=== PATIENT | female | born 1960 | race Caucasian/White ===

== ENCOUNTER → 2022-05-09 | Outpatient (CLI) | payer BC ==
--- NOTE | 2022-05-09 09:38 | BD ---
EXAMINATION TYPE: Axial Bone Density DATE OF EXAM: 05/09/2022 COMPARISON: NONE CLINICAL HISTORY: 61 year old Female. ICD-10 CODE: M81.0 OSTEOPOROSIS Height: 69 Weight: 184.4 FRAX RISK QUESTIONS: Alcohol (3 or more units per day): no Family History (Parent hip fracture): no Glucocorticoids (More than 3mos): no (Ex: prednisone, prednisolone, methylprednisolone, dexamethasone, and hydrocortisone). History of Fracture in Adulthood: no Secondary Osteoporosis: 1. Type 1 Diabetes: no 2. Hyperthyroidism: no 3. Menopause before 45: no 4. Malnutrition: no 5. Chronic liver disease: no Rheumatoid Arthritis: no Current Tobacco Use: no RISK FACTORS HISTORY OF: Surgery to Spine/Hip(right/left)/Wrist (right/left): no Family History of Osteoporosis: yes Active: no Diet low in dairy products/other sources of calcium: yes Postmenopausal woman: yes Lost more than 2 inches in height since high school: no MEDICATIONS: Additional History: EXAM MEASUREMENTS: Bone mineral densitometry was performed using the DEUS System. Bone mineral density as measured about the Lumbar spine is: ----- L1-L4(G/cm2): 0.912 T Score Values are as follows: ----- L1: -2.4 ----- L2: -3.1 ----- L3: -2.2 ----- L4: -1.7 ----- L1-L4: -2.2 Bone mineral density : baseline Bone mineral density about the R hip (g/cm2): 0.713 Bone mineral density about the L hip (g/cm2): 0.747 T Score values are as follows: -----R Neck: -2.3 -----L Neck: -2.1 -----R Total: -2.7 -----L Total: -2.5 Bone mineral density : baseline FRAX%s: The graph provided illustrates a 11.3% chance for a major osteoporotic fx and a 1.9% chance f or the hips probability for fx in 10 years time. IMPRESSION: Osteoporosis (T Score less than -2.5). There is increased fracture risk and therapy is usually indicated based on age. Re-Screen 1-2 years. NOTE: T-SCORE=SD OF THE YOUNG ADULT MEAN.
== END | disposition home or self-care (01) ==
LOC: RADMAMWWP 07:08
PROVIDERS: ATTEND Family Medicine
DX: Z12.31 Encounter for screening mammogram for malignant neoplasm of breast (principal); M81.0 Age-related osteoporosis without current pathological fracture
CPT/HCPCS: 77063; 77067; 77080

== ENCOUNTER → 2022-06-05 | Outpatient (CLI) | payer BC ==
--- NOTE | 2022-06-05 09:52 | CT ---
EXAMINATION TYPE: CT abdomen w con DATE OF EXAM: 06/05/2022 COMPARISON: None HISTORY: Hernia, kidney lesion CT DLP: 587.3 mGycm CONTRAST: CT scan of the abdomenis performed with Oral Contrast and with IV Contrast, patient injected with 61m l mL of Isovue 300. FINDINGS: LUNG BASES-: No visible nodule. No infiltrate. LIVER/GB: The gallbladder surgically absent. No space occupying hepatic lesion. Biliary tree is of normal caliber. PANCREAS: No inflammation. No distinct mass. SPLEEN: No splenic enlargement. No lesion seen. ADRENALS: No nodule. No thickening. KIDNEYS/BLADDER: No hydronephrosis. No nephrolithiasis. Fat-containing lesion mid pole left kidney measuring 1.9 cm compatible with angiomyolipoma. No additional renal lesions seen. Urinary bladder gr ossly unremarkable. BOWEL: Postoperative changes about the stomach. Moderate fecal stasis. Nonvisualization of the append ix. Visualized bowel loops are of normal caliber. LYMPH NODES: No greater than 1cm abdominal or pelvic lymph nodes are appreciated. AORTA: No significant abnormality. OSSEOUS STRUCTURES: No significant abnormality is seen. OTHER: No visible hernia within the imaged field. IMPRESSION: 1. Angiomyolipoma of the left kidney.
== END | disposition home or self-care (01) ==
LOC: RADCTMAIN 08:00
PROVIDERS: ATTEND Family Medicine
DX: N28.9 Disorder of kidney and ureter, unspecified (principal); K43.9 Ventral hernia without obstruction or gangrene
CPT/HCPCS: 74160; Q9967 ×2

== ENCOUNTER → 2023-06-28 | Outpatient (CLI) | payer BC ==
--- NOTE | 2023-06-29 09:57 | CT ---
EXAMINATION TYPE: CT abdomen pelvis w con DATE OF EXAM: 06/28/2023 COMPARISON: 06/05/2020 HISTORY: Follow-up renal lesion CT DLP: 712.6 mGycm Automated exposure control for dose reduction was used. CONTRAST: CT scan of the abdomen pelvis is performed with IV Contrast, patient injected with 100 mL of Isovue 3 00. FINDINGS- LUNG BASES- No significant abnormality is appreciated. LIVER/GB- No gross abnormality is appreciated. PANCREAS- No gross abnormality is seen. SPLEEN- No gross abnormality is seen. ADRENALS- No gross abnormality is seen. KIDNEYS/BLADDER- No hydronephrosis. No nephrolithiasis. Fat-containing lesion mid pole left kidney me asuring 1.8 cm compatible with angiomyolipoma. No additional renal lesions seen. Urinary bladder kristopher sly unremarkable. BOWEL- small hiatal hernia with postoperative change involving the epigastrium\stomach. No evidence of obstruction. Extensive retained fecal debris. Correlate for constipation. LYMPH NODES- No greater than 1cm abdominal or pelvic lymph nodes are appreciated. OSSEOUS STRUCTURES- hypertrophic and degenerative changes spine with grade 1 anterolisthesis of L3-4 and chronic appearing endplate deformity of L3. Diffuse osteopenia. Bilateral hip arthropathy. Canno t exclude early osteonecrosis. OTHER- aorta of normal caliber. There is a fat-containing ventral wall hernia IMPRESSION- 1. Stable 1.8 cm left renal lesion. Differential diagnosis would include an angiomyolipoma. Would rec ommend MRI of the kidney for confirmation. 2. There are 2 fat-containing moderate-sized ventral abdominal wall hernia.
--- NOTE | 2023-07-01 16:42 | MM ---
Reason for Exam: Screening (asymptomatic). Last mammogram was performed 1 year(s) and 2 month(s) ago. Patient History: Menarche at age 11. Patient has no children. Postmenopausal. Hormonal Contraceptives for 4 months. Maternal grandmother had breast cancer at or over age 50. Mother had breast cancer at or over age 50. Risk Values: Sophia 5 year model risk: 3.3%. NCI Lifetime model risk: 14.3%. Prior Study Comparison: 02/21/2018 Bilateral MG 3D screening mammo w/cad, [place]. 05/09/2019 Bilateral MG 3D screening mammo w/cad, [place]. 05/09/2022 Bilateral MG 3D screening mammo w/cad, [facility]. Tissue Density: There are scattered fibroglandular densities. Findings: Analyzed By CAD. Unchanged benign bilateral calcifications. There is no suspicious group of microcalcifications or new suspicious mass in either breast. Overall Assessment: Benign, BI-RAD 2 Management: Screening Mammogram of both breasts in 1 year. See note below in regards to patient's increased five-year Sophia score. Patient should continue monthly self-breast exams. A clinical breast exam by your physician is recommended on an annual basis. This exam should not preclude additional follow-up of suspicious palpable abnormalities. Note on Sophia scores and lifetime risk: 1. A Sophia score greater than 3% is considered moderate risk. If this is the case, consider specialist referral to assess eligibility for a risk reducing agent. 2. If overall lifetime risk for the development of breast cancer is 20% or higher, the patient may qualify for future screening with alternating mammogram and breast MRI. Electronically signed and approved by: Isauro Davis M.D. Radiologist
== END | disposition home or self-care (01) ==
LOC: RADCTMAIN 14:22
PROVIDERS: ATTEND Family Medicine
DX: Z12.31 Encounter for screening mammogram for malignant neoplasm of breast (principal); D17.71 Benign lipomatous neoplasm of kidney; N28.9 Disorder of kidney and ureter, unspecified; K43.9 Ventral hernia without obstruction or gangrene; Z78.0 Asymptomatic menopausal state; Z80.3 Family history of malignant neoplasm of breast
CPT/HCPCS: 77067; 77063; 74177; Q9967

== ENCOUNTER → 2024-02-06 | Outpatient (CLI) | payer BC ==
--- NOTE | 2024-02-07 12:48 | MR ---
EXAMINATION TYPE: MR kidney wo/w con DATE OF EXAM: 02/06/2024 8:09 AM CLINICAL INDICATION:Female, 63 years old with history of N28.89 kidney lesion, Left renal lesion. COMPARISON: CT scan abdomen from 06/28/2023. TECHNIQUE: Multiplanar multi-sequence imaging was performed without contrast. Post contrast imaging was performed. Post IV contrast subtraction images were also submitted for review. IV Contrast: 10 cc Gadavist FINDINGS: LOWER CHEST: No gross irregularity. ABDOMEN Liver: No evidence for hepatic steatosis or cirrhosis. Signal dropout on chemical shift in phase imag ing. Gallbladder and Bile ducts: No evidence for ductal dilation, or biliary stricture or evidence of chol edocholithiasis. The gallbladder is within normal limits. Pancreas: No ductal dilation. No evidence for solid mass. Spleen: Normal for size. Signal dropout on chemical shift in phase imaging. Adrenal glands: Unremarkable. Kidneys: Left renal hypoenhancing neoplasm measuring 19 x 14 mm. No evidence for obstructive uropathy . No suspicious renal masses. Stomach and Bowel: No evidence for bowel wall thickening or evidence for obstruction. Retroperitoneum/Peritoneum: No evidence of pneumoperitoneum or free fluid. Vasculature: No aortic aneurysm. Musculoskeletal: The osseous structures appear intact. Lymph Nodes: No gross evidence for lymphadenopathy. Abdominal wall: Fat-containing umbilical hernia measuring 16 mm at the neck. IMPRESSION: 1. Hypoenhancing left renal neoplasm concerning for renal cell carcinoma such as papillary or chromo phobe such subtype. 2. Iron deposition in the liver and spleen.
== END | disposition home or self-care (01) ==
LOC: RADMRIMAIN 07:09
PROVIDERS: ATTEND Family Medicine
DX: N28.89 Other specified disorders of kidney and ureter (principal)
CPT/HCPCS: 74183; A9585

== ENCOUNTER → 2024-05-15 | Outpatient (CLI) | payer BC ==
[2024-05-15 15:14] VITALS: BP 113/79; PULSE 80; RESP 16; TEMP 98.1
--- NOTE | 2024-05-15 15:52 | P.SLEEP ---
History of Present Illness DATE: 05/15/2024 CONSULTATION/NEW PATIENT EVALUATION HISTORY OF PRESENT ILLNESS/SLEEP-WAKE EVALUATION: 63-year-old lady had been e valuated in the sleep center for possible obstructive sleep apnea hypopnea syndrome. Patient has history of witnessed episodes of stop breathing during the sleep before she lost weight after bariatric surgery. SLEEP SCHEDULE: Usually sleep schedule from 9:3010:30 PM until 6:307 AM. FALLING ASLEEP: Usually no significant problems with falling asleep. DURING SLEEP: Patient snores and has several awakenings during the sleep after which she has difficulties to initiate sleep again. No history of hypnogogical hallucinations, sleep paralysis, or cataplexy. DURING THE DAY/WAKE STATE: In the morning patient wake up tired. [place] sleepiness scale is 4. Usually patient does not take naps. PAST MEDICAL HISTORY: Arthritis, skin cancer. PAST SURGICAL HISTORY: Status post left knee replacement, bariatric surgery. MEDICATIONS: Please see below. SOCIAL HISTORY: Please see below. FAMILY HISTORY: Prostate cancer, breast cancer. REVIEW OF SYSTEMS: Snoring, awakenings from sleep. No fevers. No double vision. No recent chest pain. No shortness of breath. No abdominal pain. No bleeding episodes. No blood in urine. No seizure episodes. PHYSICAL EXAMINATION: GENERAL: A pleasant patient without any distress. VITAL SIGNS: Please see below, weight 188 pounds, BMI 28.5. HEENT: PERRLA, EOMI. Evaluation of oropharynx showed tongue protrudes midline, low position of soft palate Mallampati 34, retrognathia 1 to 2 mm. NECK: Supple. No JVD. Thyroid is not palpable. 12.5 inches in circumference. LUNGS: Clear to percussion and to auscultation. Good air exchange. No wheezing or rhonchi. HEART: S1, S2 regular. No murmurs, gallops or rubs. ABDOMEN: Soft and nontender. Bowel sounds are present. No organomegaly appreciated. EXTREMITIES: No clubbing or cyanosis. SENIOR INFORMATION SECURITY ARCHITECT: Awake, alert, and oriented x3. Cranial nerves 2 to 7 intact. There is no fasciculation or atrophy noted. No focal deficits observed. ASSESSMENT: 1. Snoring, awakenings from sleep, extremely low position of soft palate Mallampati 34, retrognathia 1 to 2 mm. A witnessed episodes of stop breathing during the sleep before patient lost weight. Possible obstructive sleep apnea hypopnea syndrome. 2. Status post bariatric surgery. 3. Arthritis. 4. Status post left knee replacement. PLAN: 1. Home sleep apnea test for evaluation of patient's breathing during sleep. 2. Following plan after reading sleep study 3. Preferable position during sleep on the side. 4. No driving if patient feels any sleepiness. Patient is aware of civil and criminal liability for unsafe driving. 5. Sleep hygiene with regular sleep time for at least 7.5-8 hours. 6. Watching weight. Thank you very much for referring this patient for consultation. Sincerely, Vasile Mclain MD, PhD, FAASM. Diplomat of [place] [employer], Sleep Medicine Board by [place] [employer] [place] [employer] [facility] [place] cc: Nicole Cross MD Past Medical History Past Medical History: Cancer Additional Past Medical History / Comment(s): HX: squamous cell and basil Carcinom Face History of Any Multi-Drug Resistant Organisms: None Reported Past Surgical History: Bariatric Surgery, Orthopedic Surgery Additional Past Surgical History / Comment(s): Left Knee replacement Past Anesthesia/Blood Transfusion Reactions: No Reported Reaction Past Psychological History: Depression Smoking Status: Never smoker Past Alcohol Use History: Occasional Past Drug Use History: None Reported - Past Family History Father Family Medical History: Cancer Mother Family Medical History: Cancer, Osteoarthritis (OA) Brother(s) Family Medical History: Cancer Additional Family Medical History / Comment(s): sinus headaches Medications and Allergies Home Medications Medication Instructions Recorded Confirmed Type Denosumab [Prolia] See Rx Instructions .ROUTE .COMPLEX 05/15/24 05/15/24 History Mirtazapine See Rx Instructions .ROUTE .COMPLEX 05/15/24 05/15/24 History Physical Exam Vitals: Vital Signs Temp Pulse Resp BP Pulse Ox 05/15/24 15:14 98.1 F 80 16 113/79 97 Intake and Output 05/15/24 05/15/24 05/15/24 06:59 14:59 22:59 Other: Weight 85.275 kg Sleep Note - Sleep Data ESS Total: 4 - Sleep Note Sleep Note: Temperature: 98.1 F Pulse Rate: 80 Respiratory Rate: 16 Blood Pressure: 113/79 SpO2: 97 Height: 5 ft 8 in Weight: 85.275 kg BMI: Neck Circumference: 12.5
== END ==
LOC: 3 N SLEEP 14:53
PROVIDERS: ATTEND Internal Medicine
DX: R06.83 Snoring (principal); M26.19 Other specified anomalies of jaw-cranial base relationship; M19.90 Unspecified osteoarthritis, unspecified site; Z98.84 Bariatric surgery status; Z96.652 Presence of left artificial knee joint
CPT/HCPCS: 99211

== ENCOUNTER → 2024-05-20 | Outpatient (CLI) | payer BC ==
--- NOTE | 2024-05-20 11:01 | BD ---
EXAMINATION TYPE: Axial Bone Density DATE OF EXAM: 05/20/2024 CLINICAL HISTORY: 63 years old Female. ICD-10 CODE: M81.0 AGE RELATED OSTEO Height: 68 Weight: 190 FRAX RISK QUESTIONS: Alcohol (3 or more units per day): no Family History (Parent hip fracture): yes Glucocorticoids (More than 3mos): no (Ex: prednisone, prednisolone, methylprednisolone, dexamethasone, and hydrocortisone). History of Fracture in Adulthood: no Secondary Osteoporosis: 1. Type 1 Diabetes: no 2. Hyperthyroidism: no 3. Menopause before 45: no 4. Malnutrition: no 5. Chronic liver disease: no Rheumatoid Arthritis: no Current Tobacco Use: no RISK FACTORS HISTORY OF: Surgery to Spine/Hip(right/left)/Wrist (right/left): no MEDICATIONS: Osteoporosis Medications: prolia How Lon total shots EXAM MEASUREMENTS: Bone mineral densitometry was performed using the [employer] System. Bone mineral density as measured about the Lumbar spine is: ----- L1-L4(G/cm2): 1.000 T Score Values are as follows: ----- L1: -2.7 ----- L2: -2.7 ----- L3: 0.2 ----- L4: -1.2 ----- L1-L4: -1.5 Z Score Values are as follows: ----- L1: -2.0 ----- L2: -2.0 ----- L3: 0.9 ----- L4: -0.5 ----- L1-L4: -0.7 Bone mineral density has: increased 9.6 % since study of: 05.09.2022 Bone mineral density about the R hip (g/cm2): 0.665 Bone mineral density about the L hip (g/cm2): 0.706 T Score values are as follows: -----R Neck: -2.3 -----L Neck: -2.2 -----R Total: -2.7 -----L Total: -2.4 Z Score values are as follows: -----R Neck: -1.4 -----L Neck: -1.3 -----R Total: -2.1 -----L Total: -1.8 Bone mineral density has: 0.0 change % since study of: . FRAX%s: The graph provided illustrates a 21.2% chance for a major osteoporotic fx and a 2.1% chance f or the hips probability for fx in 10 years time. IMPRESSION: Osteopenia (T Score between -2.5 and -1). There is slightly increased risk of fracture and the patient may be considered for treatment. Re-Screen 2-5 years. NOTE: T-SCORE=SD OF THE YOUNG ADULT MEAN. [facility], , 05/20/2024 10:59 AM
== END | disposition home or self-care (01) ==
LOC: RADBDWWP 09:42
PROVIDERS: ATTEND Internal Medicine Rheumatology
CPT/HCPCS: 77080

== ENCOUNTER → 2024-05-22 | Outpatient (CLI) | payer BC ==
--- NOTE | 2024-06-18 10:38 | P.PCN ---
Description of Procedure: CLINICAL: A home sleep apnea test has been done for confirmation of possible obstructive sleep apnea-hypopnea syndrome. DESCRIPTION OF PROCEDURE: RESULTS: Recording time was 8 hours 32 minutes. Evaluation time was 8 hours 19 minutes. Evaluation time is sufficient for making conclusion about results of the test. Raw data of sleep recording has been reviewed and is adequate. Respiratory channel showed 4 apneas and 30 hypopneas. Apnea-hypopnea index was 4.1 per hour. Pulse rate in the range between minimum 54, maximum 94, average 66 by computer calculation. Lowest desaturation was 91%. IMPRESSION: 1. No significant respiratory abnormalities have been documented during the sleep study. Please see other impressions from consultation. PLAN: 1. Sleep hygiene with regular time in bed for at least 8 hours. 2. Watching weight. 3. No driving if feeling any sleepiness. 4. Follow-up visit to discuss results of the test and recommendations. Thank you very much for allowing me to participate in the management of your patient. Sincerely, Vasile Mclain MD, PhD, FAASM Diplomat of [place] [employer] Specialties Sleep Medicine Board of [place] Board of Internal Medicine [facility] [place] cc: Nicole Cross MD
== END | disposition home or self-care (01) ==
LOC: 3 N SLEEP 10:45
PROVIDERS: ATTEND Internal Medicine
DX: G47.33 Obstructive sleep apnea (adult) (pediatric) (principal); M26.19 Other specified anomalies of jaw-cranial base relationship; M19.90 Unspecified osteoarthritis, unspecified site; Z96.652 Presence of left artificial knee joint; Z98.84 Bariatric surgery status

== ENCOUNTER → 2024-07-07 | Outpatient (CLI) | payer BC | LOC: LABWHC1 15:59 | PROVIDERS: ATTEND Family Medicine | DX: Z53.9 Procedure and treatment not carried out, unspecified reason (principal) ==

== ENCOUNTER → 2024-07-09 | Outpatient (CLI) | payer BC ==
--- NOTE | 2024-07-11 14:57 | MM ---
Reason for Exam: Screening (asymptomatic). Last screening mammogram was performed 12 month(s) ago. Patient History: Menarche at age 11. Patient has no children. Postmenopausal. Hormonal Contraceptives for 4 months. Maternal grandmother had breast cancer, age 80. Mother had breast cancer, age 50. Risk Values: Sophia 5 year model risk: 3.4%. NCI Lifetime model risk: 13.9%. Prior Study Comparison: 05/09/2019 Bilateral MG 3D screening mammo w/cad, [place]. 05/09/2022 Bilateral MG 3D screening mammo w/cad, [facility]. 06/28/2023 Bilateral MG 3D screening mammo w/cad, [facility]. Tissue Density: The breasts are heterogeneously dense, which may obscure small masses. Findings: Analyzed By CAD. Some regional punctate calcifications are redemonstrated on both sides. Areas of asymmetric density particularly on the right are unchanged. There is no suspicious group of microcalcifications or new suspicious mass in either breast. Overall Assessment: Benign, BI-RAD 2 Management: Screening Mammogram of both breasts in 1 year. See note below in regards to patient's increased 5 year Sophia score. Patient should continue monthly self-breast exams. A clinical breast exam by your physician is recommended on an annual basis. This exam should not preclude additional follow-up of suspicious palpable abnormalities. Note on Sophia scores and lifetime risk: 1. A Sophia score greater than 3% is considered moderate risk. If this is the case, consider specialist referral to assess eligibility for a risk reducing agent. 2. If overall lifetime risk for the development of breast cancer is 20% or higher, the patient may qualify for future screening with alternating mammogram and breast MRI. [facility], , 07/11/2024 2:54 PM. Electronically signed and approved by: Isauro Davis M.D. Radiologist
== END | disposition home or self-care (01) ==
LOC: RADMAMWWP 08:50
PROVIDERS: ATTEND Family Medicine
DX: Z12.31 Encounter for screening mammogram for malignant neoplasm of breast (principal); R92.333 Mammographic heterogeneous density, bilateral breasts; Z78.0 Asymptomatic menopausal state; Z80.3 Family history of malignant neoplasm of breast
CPT/HCPCS: 77063; 77067

== ENCOUNTER → 2024-07-21 | Outpatient (CLI) | payer BC | END | disposition home or self-care (01) | LOC: LABWHC1 09:57 | PROVIDERS: ATTEND Orthopaedic Surgery | DX: Z01.818 Encounter for other preprocedural examination (principal); Z22.322 Carrier or suspected carrier of Methicillin resistant Staphylococcus aureus; M17.11 Unilateral primary osteoarthritis, right knee | CPT/HCPCS: 87070 ==

== ENCOUNTER 2024-07-25 05:37 | Day surgery (SDC) | payer BC ==
[2024-07-22 09:21] VITALS: BMI 28.0
--- NOTE | 2024-07-24 09:24 | P.HPOR ---
History of Present Illness H&P Date: 07/24/24 Chief Complaint: Right knee pain This 63-year-old retired female who presents with progressive right knee pain for the past several years worsening recently. She notes pain with weightbearing activities. She has intermittent locking and giving way. She's tried medications in addition to injections with only temporary partial relief. She notes daily pain that limits her. Review of Systems Per HPI Past Medical History Past Medical History: Cancer, Osteoarthritis (OA) Additional Past Medical History / Comment(s): HX: squamous cell and basil Carcinoma Face, OSTEOPENIA, SEASONAL ALLERGIES History of Any Multi-Drug Resistant Organisms: None Reported Past Surgical History: Bariatric Surgery, Joint Replacement Additional Past Surgical History / Comment(s): GASTRIC BYPASS-1998, COLONOSCOPY, EGD, LT TKA, SKIN CANCER REMOVED FROM FACE X 2 Past Anesthesia/Blood Transfusion Reactions: No Reported Reaction Smoking Status: Never smoker - Past Family History Father Family Medical History: Cancer Mother Family Medical History: Cancer, Osteoarthritis (OA) Brother(s) Family Medical History: Cancer Additional Family Medical History / Comment(s): sinus headaches Medications and Allergies Home Medications Medication Instructions Recorded Confirmed Type Denosumab [Prolia] 1 dose INJ DIRECTED 05/15/24 07/22/24 History Mirtazapine 7.5 mg PO DAILY@1900 05/15/24 07/22/24 History Black Currant 2,500 mcg PO DAILY 07/22/24 History Calcium Carbonate/Vitamin D3 2 each PO DAILY 07/22/24 07/22/24 History [Calcium 250-D Tablet] Cholecalciferol (Vitamin D3) 375 mcg PO DAILY 07/22/24 07/22/24 History [Vitamin D3 (125 MCG = 5,000 IU)] Magnesium Carb,Citrate,Oxide 300 mg PO DAILY 07/22/24 07/22/24 History [Magnesium Complex] Multivit-Min/Iron Fum/Folic AC 1 each PO DAILY 07/22/24 07/22/24 History [One-A-Day Women's Complete Tab] Vitamin B Complex 1 each PO DAILY 07/22/24 07/22/24 History Allergies Allergy/AdvReac Type Severity Reaction Status Date / Time No Known Allergies Allergy Verified 07/22/24 08:43 Physical Examination - Knee right Appearance: effusion Effusion grade: grade 2 Varus alignment in stance: 10 degrees Tenderness with palpation: anterior, medial Pain: throughout ROM Gait: limping ROM: extension: -10 degrees ROM: flexion: 120 degrees Crepitus with motion: Yes Strength: extension: 5/5 Strength: flexion: 5/5 Meniscal tests: medial meniscal tests: positive, medial joint line pain: positive Results The patient is a well-developed well-nourished female approximately 5 foot 9, 185 pounds of mesomorphic habitus. HEENT exam is nonfocal, neck supple. She has painless passive motion of the right hip. Straight leg raise is negative. She tendon about the medial joint line the right knee. Collaterals are stable, Kayleigh was negative, Robinson's is equivocal. She has genu varum alignment. Her distal neurovascular appears intact in the right lower extremity. - Diagnostic results Knee x-ray: image reviewed (X-rays of the right knee obtained in the office show severe medial and patellofemoral compartment with [id number] changes along with subchondral sclerosis.) Assessment and Plan Assessment: Right knee severe medial and patellofemoral compartment osteoarthrosis Plan: The patient at length regarding her condition along with treatment options. At this point she is quite symptomatic having pain and mechanical symptoms related to her right knee osteoarthrosis despite conservative measures. After a thorough discussion she opts to proceed with surgery. We'll proceed with right total knee arthroplasty. Risks and benefits were discussed at length and the instruments. We'll institute DVT prophylaxis postoperatively.
[~2024-07-25 05:37] MED LIST: TRANEXAMIC 1,000 MG/100ML-NACL 1,000 MG in SALINE 1 100ML.BAG IVPB PRN
[2024-07-25] MEDS ORDERED: LIDOCAINE 1% (10MG/ML) FOR IV START INTRADERMA PRN (06:13)
[2024-07-25] MEDS: LACTATED RINGERS 1,000 ML IV ONE ×2 (06:40→14:34)
[2024-07-25] MEDS: LACTATED RINGERS 1,000 ML IV SCH (06:40)
[2024-07-25] MEDS: MIDAZOLAM 2 MG/2 ML VIAL IV ONE (06:54)
[2024-07-25] MEDS: DEXAMETHASONE SOD PHOSPHATE 4 MG/ML 1 ML VIAL IV ONE (07:14)
[2024-07-25] MEDS: ONDANSETRON 4 MG/2 ML VIAL IVP ONE (07:14)
[2024-07-25] MEDS: ACETAMINOPHEN TAB 500 MG TAB PO PRN (07:15)
[2024-07-25] MEDS: MELOXICAM 7.5 MG TAB PO PRN (07:15)
[2024-07-25] MEDS ORDERED: ePHEDrine 50 MG/ML 1 ML VIAL ONE (07:39)
[2024-07-25] MEDS ORDERED: ROPIVACAINE 5 MG/ML 30 ML VIAL ONE (07:39)
[2024-07-25] MEDS ORDERED: fentaNYL (PF) 50 MCG/ML 2 ML AMP ONE (07:39)
[2024-07-25] MEDS ORDERED: diphenhydrAMINE 50 MG/ML 1 ML VIAL ONE (07:39)
[2024-07-25] MEDS ORDERED: TRANEXAMIC 1,000 MG/100ML-NACL PREMIX BAG ONE (07:39)
[2024-07-25] MEDS ORDERED: MIDAZOLAM 2 MG/2 ML VIAL ONE (07:39)
[2024-07-25] MEDS ORDERED: PROPOFOL 10 MG/ML 20 ML VIAL IV ONE (07:39)
[2024-07-25] MEDS ORDERED: DEXAMETHASONE SOD PHOSPHATE 4 MG/ML 1 ML VIAL ONE (07:39)
[2024-07-25] MEDS: ceFAZolin 1,000 MG in SODIUM CHLORIDE 0.9% 1,000 ML IRRIGATION ONE (08:01)
[2024-07-25] MEDS ORDERED: MAGNESIUM HYDROXIDE 2,400 MG/30 ML CUP PO PRN (09:28)
[2024-07-25] MEDS ORDERED: HYDROcodone/APAP 5-325MG 1 EACH TAB PO PRN (09:28)
[2024-07-25] MEDS ORDERED: HYDROmorphone 1 MG/ML 1 ML SYRINGE IVP PRN (09:28)
[2024-07-25] MEDS ORDERED: ONDANSETRON 4 MG/2 ML VIAL IVP PRN (09:28)
[2024-07-25] MEDS ORDERED: NALOXONE 0.4 MG/ML 1 ML VIAL IV PRN (09:28)
--- NOTE | 2024-07-25 09:51 | P.OP ---
Date of Procedure: 07/25/24 Preoperative Diagnosis: Right knee severe tricompartmental osteoarthrosis Postoperative Diagnosis: Same Procedure(s) Performed: Right total knee arthroplastycementedposterior stabilized Implants: DePuy attune size 6 cemented femoral component, size 5 cemented tibial component with a 14 x 50 mm stem, 10 mm articular surface, 38 mm cemented patellar component. This is a posterior stabilized implant. Anesthesia: regional, spinal Surgeon: Allen Herrera Office Chair Assembler #1: Alfredo Zacarias Estimated Blood Loss (ml): 50 Pathology: none sent Condition: stable Disposition: PACU Indications for Procedure: The patient is a 63-year-old female who presents with progressive right knee pain secondary to osteoarthrosis despite conservative measures. A discussion of the risks and benefits of operative intervention versus continued conservative measures was made with the patient. She opted to proceed with surgery. Operative risks include infection, neurovascular injury, development of blood clots, fracture, possible component loosening/failure and possible need for subsequent procedures was discussed. Informed consent was obtained. Operative Findings: As below Description of Procedure: The patient was brought to the operating room, and after induction of spinal anesthesia the right lower extremity was prepped and draped in a normal fashion. The tourniquet was inflated to 270 mm marker. A longitudinal incision extending 3 finger breaths above the superior pole of patella extending to the medial aspect the tibial tubercle was then made. The skin and subcutaneous tissues were divided sharply. Electrocautery was used for hemostasis. A medial parapatellar arthrotomy was performed. The medial soft tissues to include the superficial and deep portions of the medial collateral ligament were elevated subperiosteally. The patella was everted. A portion of the retropatellar fat pad was excised sharply. The anterior cruciate ligament was sacrificed. Blunt retractors were placed. A starting hole was made in the distal femur 1 cm anterior to the posterior cruciate ligament origin. An intramedullary femoral guide was then inserted planning on 5 valgus distal cut with 9 mm distal resection. The cutting block was pinned in place. The distal cut was then made. The posterior referencing sizing guide was utilized. I felt size 6 was most appropriate. 3 of external rotation was built into the system and verified off the trans-epicondylar axis and the posterior condyles. The cutting block was pinned in place. The anterior, posterior, and chamfer cuts then made. Bone fragments were removed. The intercondylar guide was placed and the notch cut was made with a sagittal saw. The bone block was removed in one fragment. The trial component was then placed. There is good anterior to posterior and medial to lateral fit. The distal peg holes were drilled. The trial component was removed. Attention was then paid towards preparing the proximal tibia. An extra medullary guide was utilized in line with the tibial shaft and second metatarsal distally. I planned on 2 mm resection from the medial compartment. The cutting block was pinned in place. The proximal tibial cut was then made. The bone was removed in one fragment. The remnants of the medial and lateral menisci were excised at the capsular junction with electrocautery. The tibia si zed most appropriately at size 5. The trial femoral and tibial components were placed along with a 10 mm articular surface. I was able to obtain full flexion and extension with internal and external rotation. After several flexion and extension cycles, the tibial rotation was marked with electrocautery line with the medial one third of the tibial tubercle. Attention was then paid towards preparing the patella. A patella reamer was utilized taking stem to 14 mm of bone stock. A good flush cut was made. The patella sized most appropriately 38 mm. The peg holes were drilled. The trial components placed. I had good patellofemoral tracking with no hands technique. The trial components were then removed. The tibia was prepared in the appropriate rotation with appropriate drill and keel punch. The posterior osteophytes were removed with a curved osteotome. The flexion and extension gaps were checked and felt to be symmetric at 10 mm. A trial components were then removed. The bony surfaces were prepared with pulsatile lavage and dried. The tibial component was then cemented place was fully seated. Excess cement was removed. The femoral component cemented place and was fully seated. Excess cement was removed. The trial 10 mm articular surface was placed and the knee was put in full extension. The patella component was cemented place. After the cement had sufficiently hardened, the knee was again taken through a range of motion. Again I was able to obtain full flexion and extension with varus and valgus stress. The trial 10 mm articular surface was removed and the final one inserted. This was fully seated. Care was taken to avoid any soft tissue interposition. Pulsatile lavage was again utilized. The medial parapatellar arthrotomy was closed with #2 Ethibond suture. The tourniquet was deflated with approximately 60 minutes total tourniquet time. Final hemostasis was obtained with the cautery. There was minimal bleeding therefore a deep drain was not placed. The subcutaneous tissues were reapproximated with interrupted 2-0 Vicryl sutures. The skin was reapproximated with 3-0 subcuticular strata fix suture. Skin tape and adhesive was applied. A sterile dressing was applied. The patient was awoken from sedation and transferred to recovery room in good condition. Blood loss was estimated at 50 mL. No complications were incurred. Sponge and needle counts were correct at the end of the case. Alfredo COLEMAN assisted during the major components of this case to include exposure, bone resection, implantation, and closure.
[2024-07-25] MEDS: ROPIVACAINE 1,100 MG, SODIUM CHLORIDE 0.9% 500 ML 330 ML, EMPTY PAIN BALL 1 EACH MISCELLANE PRN (10:18)
--- NOTE | 2024-07-25 10:31 | XR ---
EXAMINATION TYPE: XR knee limited RT DATE OF EXAM: 07/25/2024 10:16 AM COMPARISON: None CLINICAL INDICATION: Female, 63 years old with history of Evaluation for Postop abnormality and align ment; PHH, pain TECHNIQUE: XR knee limited RT XX views submitted. FINDINGS: Status post total knee arthroplasty changes with hardware in appropriate alignment and in tact. No evidence of fracture. Subcutaneous lucencies and lucencies within the joint consistent with surgical changes. IMPRESSION: Status post total knee arthroplasty changes with hardware intact and appropriate alignment. No fractu res identified. [facility], , 07/25/2024 10:28 AM
[2024-07-25] MEDS: HYDROmorphone 0.5 MG/0.5 ML SYRINGE IVP PRN ×2 (11:04→23:23)
[2024-07-25] MEDS: droPERidol 5 MG/2 ML VIAL IVP ONE (15:57)
[2024-07-25] MEDS: HYDROcodone/APAP 7.5-325MG 1 EACH TAB PO PRN (20:31)
[2024-07-25] MEDS: SENNOSIDES-DOCUSATE SODIUM 1 EACH TAB PO SCH (20:31)
[2024-07-26] MEDS: RIVAROXABAN 10 MG TAB PO SCH (09:05)
[2024-07-26 09:44] LABS: Basophils # (A) 0.02 X 10*3/uL (0.00-0.10); Basophils % (A) 0.5 %; Eosinophils # (A) 0.03 X 10*3/uL (0.04-0.35); Eosinophils % (A) 0.7 %; HGB 10.5 g/dL (12.0-15.0); Lymphocytes # (A) 0.95 X 10*3/uL (0.90-5.00); Lymphocytes % (A) 21.6 %; MCH 28.2 pg (27.0-32.0); MCHC 31.8 g/dL (32.0-37.0); MCV 88.5 FL (80.0-97.0); Mean Platelet Volume 10.1 FL (9.5-12.2); Monocytes # (A) 0.53 X 10*3/uL (0.20-1.00); Monocytes % (A) 12.1 %; NRBC Per 100 WBC 0 X 10*3/uL (0.00-0.01); Neutrophils # (A) 2.85 X 10*3/uL (1.80-7.70); Neutrophils % (A) 64.9 %; Platelet Count 210 X 10*3/uL (140-440); RBC 3.73 X 10*6/uL (4.10-5.20); RDW 13.7 % (11.5-14.5); WBC 4.39 X 10*3/uL (4.50-10.00)
--- NOTE | 2024-07-26 13:27 | P.CONS ---
History of Present Illness - Reason for Consult Consult date: 07/26/24 Medical management - History of Present Illness History of present illness; patient is a 63-year-old lady with past medical history significant for osteoarthritis to the ER for elective right total knee arthroplasty. Patient has been dealing with right knee pain for the last few years, all conservative measures had failed, orthopedic discussed with patient and plan was patient to undergo right knee arthroplasty. Postoperatively internal medicine team were consulted REVIEW OF SYSTEMS: CONSTITUTIONAL: No fever, no malaise, no fatigue. HEENT: No recent visual problems or hearing problems. Denied any sore throat. CARDIOVASCULAR: No chest pain, orthopnea, PND, no palpitations, no syncope. PULMONARY: No shortness of breath, no cough, no hemoptysis. GASTROINTESTINAL: No diarrhea, no nausea, no vomiting, no abdominal pain. NEUROLOGICAL: No headaches, no weakness, no numbness. HEMATOLOGICAL: Denies any bleeding or petechiae. GENITOURINARY: Denies any burning micturition, frequency, or urgency. MUSCULOSKELETAL/RHEUMATOLOGICAL: Right knee pain ENDOCRINE: Denies any polyuria or polydipsia. The rest of the 14-point review of systems is negative. PHYSICAL EXAMINATION: GENERAL: The patient is alert and oriented x3, not in any acute distress. Well developed, well nourished. HEENT: Pupils are round and equally reacting to light. EOMI. No scleral icterus. No conjunctival pallor. Normocephalic, atraumatic. No pharyngeal erythema. No thyromegaly. CARDIOVASCULAR: S1 and S2 present. No murmurs, rubs, or gallops. PULMONARY: Chest is clear to auscultation, no wheezing or crackles. ABDOMEN: Soft, nontender, nondistended, normoactive bowel sounds. No palpable organomegaly. MUSCULOSKELETAL: Right knee surgical incision seen EXTREMITIES: No cyanosis, clubbing, or pedal edema. NEUROLOGICAL: Gross neurological examination did not reveal any focal deficits. SKIN: No rashes. Assessment and plan Right knee severe medial and patellofemoral compartment osteoarthrosis Status post right total knee arthroplasty Monitor vital signs Monitor CBC Monitor CMP Continue pain management per orthopedics Continue DVT prophylaxis per orthopedics Resume home meds PT and OT consulted Labs and medication were reviewed.. Continue same treatment. Continue with symptomatic treatment. Resume home medication. Monitor labs and vitals. DVT and GI prophylaxis. Further recommendations as per clinical course of the patient Dictation was produced using [employer] dictation software. please excuse any grammatical, word or spelling errors. Past Medical History Past Medical History: Cancer, Osteoarthritis (OA) Additional Past Medical History / Comment(s): HX: squamous cell and basil Carcinoma Face, OSTEOPENIA, SEASONAL ALLERGIES History of Any Multi-Drug Resistant Organisms: None Reported Past Surgical History: Bariatric Surgery, Joint Replacement Additional Past Surgical History / Comment(s): GASTRIC BYPASS-1998, COLONOSCOPY, EGD, LT TKA, SKIN CANCER REMOVED FROM FACE X 2 Past Anesthesia/Blood Transfusion Reactions: No Reported Reaction Past Psychological History: Depression Smoking Status: Never smoker Past Alcohol Use History: Occasional Past Drug Use History: None Reported - Past Family History Father Family Medical History: Cancer Mother Family Medical History: Cancer, Osteoarthritis (OA) Brother(s) Family Medical History: Cancer Additional Family Medical History / Comment(s): sinus headaches Medications and Allergies Home Medications Medication Instructions Recorded Confirmed Type Denosumab [Prolia] 1 dose INJ DIRECTED 05/15/24 07/25/24 History Mirtazapine 7.5 mg PO DAILY@1900 05/15/24 07/25/24 History Black Currant 2,500 mcg PO DAILY 07/22/24 History Calcium Carbonate/Vitamin D3 2 each PO DAILY 07/22/24 07/25/24 History [Calcium 250-D Tablet] Cholecalciferol (Vitamin D3) 375 mcg PO DAILY 07/22/24 07/25/24 History [Vitamin D3 (125 MCG = 5,000 IU)] Magnesium Carb,Citrate,Oxide 300 mg PO DAILY 07/22/24 07/25/24 History [Magnesium Complex] Multivit-Min/Iron Fum/Folic AC 1 each PO DAILY 07/22/24 07/25/24 History [One-A-Day Women's Complete Tab] Vitamin B Complex 1 each PO DAILY 07/22/24 07/25/24 History Allergies Allergy/AdvReac Type Severity Reaction Status Date / Time No Known Allergies Allergy Verified 07/25/24 06:25 Physical Exam Vitals: Vital Signs Temp Pulse Pulse Resp BP BP Pulse Ox 07/26/24 07:25 99.1 F 98 16 98/57 94 L 07/26/24 00:04 98.6 F 89 18 106/67 95 07/25/24 19:18 97.9 F 84 18 106/68 99 07/25/24 14:59 98.5 F 102 H 16 132/71 95 07/25/24 14:30 92 16 109/63 95 07/25/24 13:30 89 16 119/63 95 07/25/24 12:30 91 16 98/54 95 07/25/24 12:00 93 16 116/62 95 07/25/24 11:30 92 16 118/71 95 07/25/24 11:15 92 16 121/72 95 07/25/24 11:00 95 16 109/63 95 07/25/24 10:30 89 16 97/61 95 Intake and Output 07/25/24 07/26/24 07/26/24 22:59 06:59 14:59 Intake Total 240 240 Balance 240 240 Intake: Oral 240 240 Other: # Voids 2 3 Weight 86.5 kg Results CBC & Chem 7: 07/26/24 02:55 Labs: Abnormal Lab Results - Last 24 Hours (Table) 07/26/24 Range/Units 02:55 WBC 4.39 L (4.50-10.00) X 10*3/uL RBC 3.73 L (4.10-5.20) X 10*6/uL Hgb 10.5 L (12.0-15.0) g/dL Hct 33.0 L (37.2-46.3) % MCHC 31.8 L (32.0-37.0) g/dL Eosinophils # 0.03 L (0.04-0.35) X 10*3/uL
--- NOTE | 2024-07-26 14:04 | P.DS ---
Providers Date of admission: 07/25/2024 Expected date of discharge: 07/26/24 Attending physician: Allen Herrera Consults: 07/25/24 09:28 Consult Physician Routine Consulting Provider: Durga Tse Consult Reason/Comments: medical management s/p right total knee arthroplasty Do you want consulting provider notified?: Yes Primary care physician: Nicole Cross Hospital Course: Date of admission: 07/25/2024 Date of discharge: 07/26/2024 Admission diagnosis: Right knee osteoarthritis Discharge diagnosis: Same Attending physician: Dr. Herrera Surgical procedures: Right total knee arthroplasty Brief history: Patient is a 63-year-old female with a history of progressive primary right knee osteoarthritis. At this point patient has failed conservative treatment measures and has opted to proceed with a elective right total knee arthroplasty. Hospital course: Details of patient's surgery can be found in operative report. Patient tolerated the procedure well and was subsequently transported to orthopedic floor. Patient's orthopeidc and medical care was provided daily. Patient had daily laboratory tests performed for evaluation of overall blood counts. Patient had daily physical therapy to include strengthening range of motion as well as education with walker ambulation. Patient was treated with Xarelto for their postoperative DVT prophylaxis during their inpatient stay. Patient was noted to have a relatively uneventful postoperative course. Patient reported satisfactory pain control with oral pain medications by postoperative day 1. Patient showed satisfactory progress with physical therapy. Patient moved steadily through the program and had no difficulty meeting the goals by postoperative day 1. Given patient's otherwise satisfactory course and having met physical therapy goals, plan is to discharge patient home with health services on postoperative day 1. Discharge condition/disposition: Patient will be discharged home with health services in stable condition. Discharge medications: Instructions are given on resumption of patient's normal daily medications per primary care recommendation, in addition patient will be prescribed [place]; Vistaril; Eliquis; senna. Discharge instructions: 1. Wound care and infection precautions, keep incision dry and covered while showering, no lotions, creams, moisturizers. No soaking, tubs, pools, hottubs. Do not scrub over the incision. 2. Weight-bear as tolerated with walker / cane until follow-up. 3. Ice and elevate when necessary. Do not exceed 20 minutes per hour with ice pack. 4. Utilize compression sleeve until seen at first follow up appointment. 5. Visiting nursing care. 6. Home physical therapy including home CPM. 7. Pain meds and anticoagulants per prescription. 8. Pain medication has potential to cause constipation. Increase oral fluid and fiber intake. Contact primary care provider if you have not had a bowel movement within 48 hours after discharge 9. No anti-inflammatory medication until discussed at first post operative visit, this including Motrin, Aleve, Mobic, Diclofenac. 10. Follow up in office at 2 weeks postop with Kayode Waterman PA-C / Alfredo Zacarias PA-C 11. Follow up with your primary care doctor 7-10 days after discharge. 12. Contact [facility] with any questions, . Assessment: Right knee osteoarthritis Procedures: Right total knee arthroplasty Patient Condition at Discharge: Good Plan - Discharge Summary Discharge Rx Participant: Yes New Discharge Prescriptions: New Apixaban [Eliquis] 2.5 mg PO BID #60 tab HYDROcodone/APAP 7.5-325MG [[place] 7.5-325] 1 - 2 tab PO Q6HR PRN #36 tab PRN Reason: Pain hydrOXYzine pamoate [Vistaril] 50 mg PO TID #21 capsule Sennosides/Docusate Sodium [Senna Plus 8.6-50 mg Softgel] 1 each PO DAILY #20 capsule No Action Denosumab [Prolia] 1 dose INJ DIRECTED Cholecalciferol (Vitamin D3) [Vitamin D3 (125 MCG = 5,000 IU)] 375 mcg PO DAILY Vitamin B Complex 1 each PO DAILY [place] 2,500 mcg PO DAILY Mirtazapine 7.5 mg PO DAILY@1900 Multivit-Min/Iron Fum/Folic AC [One-A-Day Women's Complete Tab] 1 each PO DAILY Magnesium Carb,Citrate,Oxide [Magnesium Complex] 300 mg PO DAILY Calcium Carbonate/Vitamin D3 [Calcium 250-D Tablet] 2 each PO DAILY Discharge Medication List Denosumab [Prolia] 1 dose INJ DIRECTED 05/15/24 [History] Mirtazapine 7.5 mg PO DAILY@1900 05/15/24 [History] [place] 2,500 mcg PO DAILY 07/22/24 [History] Calcium Carbonate/Vitamin D3 [Calcium 250-D Tablet] 2 each PO DAILY 07/22/24 [History] Cholecalciferol (Vitamin D3) [Vitamin D3 (125 MCG = 5,000 IU)] 375 mcg PO DAILY 07/22/24 [History] Magnesium Carb,Citrate,Oxide [Magnesium Complex] 300 mg PO DAILY 07/22/24 [History] Multivit-Min/Iron Fum/Folic AC [One-A-Day Women's Complete Tab] 1 each PO DAILY 07/22/24 [History] Vitamin B Complex 1 each PO DAILY 07/22/24 [History] Apixaban [Eliquis] 2.5 mg PO BID #60 tab 07/26/24 [Rx] HYDROcodone/APAP 7.5-325MG [[place] 7.5-325] 1 - 2 tab PO Q6HR PRN #36 tab 07/26/24 [Rx] Sennosides/Docusate Sodium [Senna Plus 8.6-50 mg Softgel] 1 each PO DAILY #20 capsule 07/26/24 [Rx] hydrOXYzine pamoate [Vistaril] 50 mg PO TID #21 capsule 07/26/24 [Rx] Follow up Appointment(s)/Referral(s): Alfredo Zacarias, PRAFUL [PHYSICIAN INSPECTOR MACHINE CUT GLASS] - 2 Weeks [facility],Equipment [NON-STAFF] - As Needed (Continuous Passive Motion knee machine) Patient Instructions/Handouts: Knee Replacement (GEN) Activity/Diet/Wound Care/Special Instructions: Orthopedic Discharge Instructions: 1. Wound care and infection precautions, keep incision dry and covered while showering, no lotions, creams, moisturizers. No soaking, pools, hot tubs. Do not scrub over incision. 2. Weight-bear as tolerated with walker / cane until follow-up. 3. Ice and elevate when necessary. Do not exceed 20 minutes per hour with ice pack. 4. Utilize compression sleeve until seen at first follow up appointment. 5. Pain meds and anticoagulants per prescription. 6. Pain medication has potential to cause constipation. Increase oral fluid and fiber intake. Contact primary care provider if you have not had a bowel movement within 48 hours after discharge. 7. No anti-inflammatory medication until discussed at first post operative visit, this including Motrin, Aleve, Mobic, Diclofenac. 8. Follow up in office at 2 weeks postop with Kayode Waterman PA-C / Alfredo Zacarias PA-C 9. Follow up with your primary care doctor 7-10 days after discharge. 10. Contact [facility] with any questions, . Keep incision clean, dry, intact. While showering, cover fusion tape with Saran wrap. Keep fusion tape on until follow-up appointment office in 2 weeks. Discharge Disposition: HOME WITH HOME HEALTH SERVICES
--- NOTE | 2024-07-26 14:07 | P.PN ---
Subjective Progress Note Date: 07/26/24 Principal diagnosis: Right knee osteoarthritis Patient was seen at bedside this afternoon lying the summer composition in chair with dressing present over right knee. Patient says she did try to get up with therapy this morning however she did have a difficult time bearing weight through the right lower extremity and was unable to perform stairs. PT recommending patient to stay 1 more additional night. Patient says she is hoping to go home later today and would like to be reevaluated by physical therapy this afternoon. Patient says she has urinated since surgery without issue. Patient says no bowel movement yet, however, patient says she has been passing gas. Patient says she does have a walker for home. Patient says prior to surgery she was taking just extra strength Tylenol at home. Patient denies any other orthopedic complaints at this time. Objective - Vital Signs Vital signs: Vital Signs Temp 99.1 F 07/26/24 07:25 Pulse 98 07/26/24 07:25 Resp 16 07/26/24 07:25 BP 98/57 07/26/24 07:25 Pulse Ox 94 L 07/26/24 07:25 FiO2 Intake & Output 07/25/24 07/26/24 07/26/24 18:59 06:59 18:59 Intake Total 1251 240 240 Output Total 50 Balance 1201 240 240 Weight 86.5 kg Intake: IV 1251 Oral 240 240 Output: Estimated Blood Loss 50 Other: # Voids 2 3 - Exam Right knee: Incision is clean, dry, and intact. The exofin fusion tape is in good condition. There is minimal soft tissue swelling and ecchymosis surrounding the medial and lateral aspects of the incision. Calf is soft, no tenderness with palpation. Plantar flexion, dorsiflexion, EHL, FHL are intact. Sensory exam to light touch throughout the extremity is intact, dorsal pedis pulses 2+. - Labs CBC & Chem 7: 07/26/24 02:55 Labs: Abnormal Lab Results - Last 24 Hours (Table) 07/26/24 Range/Units 02:55 WBC 4.39 L (4.50-10.00) X 10*3/uL RBC 3.73 L (4.10-5.20) X 10*6/uL Hgb 10.5 L (12.0-15.0) g/dL Hct 33.0 L (37.2-46.3) % MCHC 31.8 L (32.0-37.0) g/dL Eosinophils # 0.03 L (0.04-0.35) X 10*3/uL Assessment and Plan Assessment: 1. Right knee osteoarthritis -Postop day 1 status post right total knee arthroplasty Plan: 1. Right knee osteoarthritis -right total knee arthroplasty performed yesterday, 07/25/2024. Patient stable at bedside this afternoon. Patient does have a walker for home. Add Vistaril 50 mg 3 times daily. Continue [place] 7.5 mg / 325 mg for pain every 6 hours. PT/OT does want patient to stay 1 more additional night as she was unable to perform stairs this morning. Nursing to reach out to PT for potential reevaluation this afternoon. If patient does improve with PT/OT, discharge home today with health services. 2. Appreciate medical management 3. Pain management -[place]; Vistaril 4. DVT prophylaxis -Xarelto in hospital. Going home with Eliquis 2.5 mg twice daily x 2 weeks 5. GI prophylaxis -senna 6. PT/OT -weightbearing as tolerated with walker 7. Encourage incentive spirometer use 8. Discharge planning - If patient does improve with PT/OT on re-evaluation this afternoon, discharge home today with health services. Time with Patient: Less than 30
[2024-07-26] MEDS: hydrOXYzine pamoate 25 MG CAP PO SCH (15:23)
[2024-07-26] MEDS: MIRTAZAPINE 15 MG TAB PO SCH (18:55)
[2024-07-27 08:45] VITALS: BP 112/68; PULSE 96; RESP 16; TEMP 99.2
[2024-07-27] MEDS: CALCIUM CARB-VIT D 500 MG-5 MCG TAB PO SCH (09:20)
[2024-07-27] MEDS: MAGNESIUM OXIDE 400 MG TAB PO SCH (09:21)
[2024-07-27] MEDS: MULTIVITAMINS, THERA 1 EACH TAB PO SCH (09:21)
[2024-07-27] MEDS: NON FORMULARY DRUG (Vitamin B Complex [Vitamin B Complex] 1 EACH Capsule) PO SCH (09:21)
--- NOTE | 2024-07-27 12:28 | P.PN ---
Subjective Progress Note Date: 07/27/24 patient is a 63-year-old lady with past medical history significant for osteoarthritis to the ER for elective right total knee arthroplasty. Patient has been dealing with right knee pain for the last few years, all conservative measures had failed, orthopedic discussed with patient and plan was patient to undergo right knee arthroplasty. Postoperatively internal medicine team were consulted 07/27. Patient seen and examined. States she feels much better. Blood pressure has improved. Denies any dizziness. REVIEW OF SYSTEMS: CONSTITUTIONAL: No fever, no malaise,. CARDIOVASCULAR: No chest pain, no palpitations, no syncope. PULMONARY: No shortness of breath, no cough, GASTROINTESTINAL: No diarrhea, no nausea, no vomiting, no abdominal pain. NEUROLOGICAL: No headaches, no weakness, PHYSICAL EXAMINATION: GENERAL: The patient is alert and oriented x3, not in any acute distress. Well d eveloped, well nourished. HEENT: Pupils are round and equally reacting to light. EOMI. No scleral icterus. No conjunctival pallor. Normocephalic, atraumatic. No pharyngeal erythema. No thyromegaly. CARDIOVASCULAR: S1 and S2 present. No murmurs, rubs, or gallops. PULMONARY: Chest is clear to auscultation, no wheezing or crackles. ABDOMEN: Soft, nontender, nondistended, normoactive bowel sounds. No palpable organomegaly. MUSCULOSKELETAL: Right knee surgical incision seen EXTREMITIES: No cyanosis, clubbing, or pedal edema. NEUROLOGICAL: Gross neurological examination did not reveal any focal deficits. SKIN: No rashes. Assessment and plan Right knee severe medial and patellofemoral compartment osteoarthrosis Status post right total knee arthroplasty Monitor vital signs Monitor CBC Monitor CMP Continue pain management per orthopedics Continue DVT prophylaxis per orthopedics Continue home meds PT and OT following Labs and medication were reviewed.. Continue same treatment. Continue with symptomatic treatment. Resume home medication. Monitor labs and vitals. DVT and GI prophylaxis. Further recommendations as per clinical course of the patient Dictation was produced using [email or web address] dictation software. please excuse any grammatical, word or spelling errors. Objective - Vital Signs Vital signs: Vital Signs Temp 99.2 F 07/27/24 07:30 Pulse 96 07/27/24 07:30 Resp 16 07/27/24 07:30 BP 112/68 07/27/24 07:30 Pulse Ox 95 07/27/24 07:30 FiO2 Intake & Output 07/26/24 07/27/24 07/27/24 18:59 06:59 18:59 Intake Total 780 540 Balance 780 540 Intake: Oral 780 540 Other: Voiding Method Toilet # Voids 1 1 2 - Labs CBC & Chem 7: 07/26/24 02:55
== END 2024-07-27 14:48 | disposition home health service (06) ==
LOC: OR 05:37 → 4SSUR 13:23 → OR 07-27 14:48
PROVIDERS: ATTEND Orthopaedic Surgery
DX: M17.11 Unilateral primary osteoarthritis, right knee (principal); Z79.01 Long term (current) use of anticoagulants; Z79.899 Other long term (current) drug therapy; Z85.828 Personal history of other malignant neoplasm of skin; Z98.84 Bariatric surgery status
CPT/HCPCS: 97530; 97162; 85025; 73560; 27447; J2250; J1100; J0690 ×2; J2405; J2795; J1171 ×2; 64448; 64999

== ENCOUNTER → 2024-10-09 | Outpatient (CLI) | payer BC ==
--- NOTE | 2024-10-09 13:37 | US ---
EXAMINATION TYPE: US carotid duplex BILAT DATE OF EXAM: 10/09/2024 COMPARISON: NONE CLINICAL INDICATION: Female, 63 years old with history of R42 Intermittent lightheadedness; Pt states lightheaded Additional History: .... TECHNIQUE: Grayscale, color Doppler and spectral Doppler evaluation of the bilateral carotid systems and vertebral arteries. Indirect Doppler criteria was utilized. FINDINGS: EXAM MEASUREMENTS: RIGHT: Peak Systolic Velocity (PSV) cm/sec ----- Right CCA: 68.6 ----- Right ICA: 68.6 ----- Right ECA: 127.6 ICA/CCA ratio: 1.0 RIGHT: End Diastole cm/sec ----- Right CCA: 18.8 ----- Right ICA: 28.4 ----- Right ECA: 17.6 LEFT: Peak Systolic Velocity (PSV) cm/sec ----- Left CCA: 82.0 ----- Left ICA: 92.7 ----- Left ECA: 94.1 ICA/CCA ratio: 1.1 LEFT: End Diastole cm/sec ----- Left CCA: 22.6 ----- Left ICA: 38.3 ----- Left ECA: 10.6 VERTEBRALS (direction of flow): Right Vertebral: Antegrade Left Vertebral: Antegrade Rhythm: Normal METEOROLOGIST LIAISON NOTES: No significant stenosis seen Color Doppler imaging shows patency with blood flow throughout the carotid artery. Spectral waveforms are within normal limits. IMPRESSION: 1. Small amount of plaquing present. No significant flow-limiting stenosis based on velocities. Criteria for Assigning % of Stenosis / Diameter reduction (Estimation based on the indirect measurements of the internal carotid artery velocities (ICA PSV). 1. Normal (no stenosis)=ICA PSV < 125 cm/s: ratio < 2.0: ICA EDV<40 cm/s. 2. Less than 50% stenosis=ICA PSV < 125 cm/s: ratio < 2.0: ICA EDV<40 cm/s. 3. 50 to 69% stenosis=ICA PSV of 125 to 230 cm/s: ration 2.0 ? 4.0: ICA EDV 40-100 cm/s. 4. Greater than 70% stenosis to near occlusion= ICA PSV > 230 cm/s: ratio > 4.0: ICA EDV > 100 cm/s. 5. Near occlusion= ICA PSV velocities may be low or undetectable: variable ratio and ICA EDV. 6. Total occlusion=unable to detect flow. [facility], , 10/09/2024 1:34 PM
== END | disposition home or self-care (01) ==
LOC: RADUSWWP 07:49
PROVIDERS: ATTEND Family Medicine
DX: I65.23 Occlusion and stenosis of bilateral carotid arteries (principal); R42 Dizziness and giddiness
CPT/HCPCS: 93880